=== PATIENT | male | born 1975 | race Caucasian/White ===

== ENCOUNTER 2018-09-11 11:01 | Emergency (ER) | payer OTHER ==
[~2018-09-11] VITALS: Ht 182.9 cm; Wt 74.8 kg
[2018-09-11] MEDS ORDERED: CELEXA40 MG PO (11:27)
[2018-09-11] MEDS ORDERED: KEFLEX500 M1 PO (12:06)
[2018-09-11 12:36] VITALS: BP 119/86
== END 2018-09-11 12:37 | disposition home or self-care (01) ==
LOC: ER 11:01
DX: S31.010A Laceration without foreign body of lower back and pelvis without penetration into retroperitoneum, initial encounter (principal); W01.0XXA Fall on same level from slipping, tripping and stumbling without subsequent striking against object, initial encounter; Y93.89 Activity, other specified; Y92.89 Other specified places as the place of occurrence of the external cause; Y99.8 Other external cause status

== ENCOUNTER → 2020-03-15 | Outpatient (CLI) | payer OTHER ==
[~2020-03-15] MED LIST: CELEXA40 MG PO; KEFLEX500 M1 PO
== END ==
LOC: LAB 09:14
PROVIDERS: ATTEND Nurse Practitioner
DX: Z20.828 Contact with and (suspected) exposure to other viral communicable diseases (principal)